=== PATIENT | female | born 1955 | race Caucasian/White ===

== ENCOUNTER 2019-06-25 11:58 | Emergency (ER) | payer OTHER, MEDICARE ==
[2019-06-25] MEDS ORDERED: IPRATROPIUM 0.02% NEBU 2.5 ML IH ONE (12:36)
[2019-06-25] MEDS ORDERED: ALBUTEROL 2.5 MG/3 ML NEBU IH ONE (12:36)
[2019-06-25] MEDS ORDERED: EPINEPHrine/PF (1:1,000) 1 MG/1 ML INJ SUB-Q ONE (12:36)
[2019-06-25] MEDS ORDERED: SODIUM CHLORIDE 0.9% 500 ML 500 ML IV ONE (12:36)
[2019-06-25] MEDS ORDERED: MAGNESIUM SULFATE 2 GM/50 ML BAG IV ONE (12:36)
[2019-06-25] MEDS ORDERED: methylPREDNISolone Sod Succinate 125 MG/2 ML INJ IV ONE (12:36)
--- NOTE | 2019-06-25 12:37 | Emergency Department Report ---
ED General Adult HPI - General Chief complaint: Dyspnea/Respdistress Stated complaint: PAGE Time Seen by Provider: 06/25/19 12:08 Source: patient, family, RN notes reviewed Mode of arrival: Ambulatory Limitations: Language Barrier - History of Present Illness Initial comments: Patient prefers that her grandson translate for her, and specifically requests family translate. This is a 64-year-old female. This patient is not known to this provider previo usly. Her primary care doctor is Dr. Wyatt. Patiently currently on amoxicillin antibiotic, and as needed albuterol. She presents to the ER with family with complaint of painless cough. The cough has been present for 3 weeks. Apparently, she intimately gets cough, and shortness of breath. Does not have a formal diagnosis of COPD, emphysema or asthma that she is aware of. There is no endorsement of DVT, pulmonary embolus risk factors. In the emergency room, given albuterol, Atrovent, steroids, magnesium and subcutaneous epinephrine. These dramatically improved and resolved her symptoms. At this point in time, the patient endorses readiness for discharge. -: Gradual, week(s) Consistency: intermittent Improves with: medication, rest Worsens with: movement - Related Data Home Medications Medication Instructions Recorded Confirmed Last Taken ALBUTEROL Inhaler (OR & NICU) 2 puff IH QID PRN 06/25/19 06/25/19 06/25/19 [Proair] Amoxicillin/Potassium Clav 1 each PO BID 06/25/19 06/25/19 06/25/19 [Augmentin 875-125 Tablet] Aspirin [Adult Aspirin] 81 mg PO DAILY 06/25/19 06/25/19 06/25/19 Atenolol [Tenormin] 25 mg PO DAILY 06/25/19 06/25/19 06/25/19 Cetirizine HCl [Zyrtec 10mg tab] 10 mg PO QDAY 06/25/19 06/25/19 06/24/19 Promethazine/Dextromethorphan 5 ml PO Q4H PRN 06/25/19 06/25/19 06/25/19 [Promethazine-Dm Solution] Previous Rx's Medication Instructions Recorded Last Taken Type Albuterol Sulfate [Proair 90 mcg IH Q4HR PRN #2 aer.[email or web address] 06/25/19 Unknown Rx Respiclick] Benzonatate [Tessalon Perles] 100 mg PO Q8HR PRN #30 capsule 06/25/19 Unknown Rx Fluticasone [Flonase] 1 spray NS QDAY #1 bottle 06/25/19 Unknown Rx Ipratropium (Nf) [Atrovent] 2 puff IH Q6HR PRN #1 inha 06/25/19 Unknown Rx predniSONE [Deltasone] 40 mg PO QDAY #8 tab 06/25/19 Unknown Rx ED Review of Systems ROS: Stated complaint: PAGE Other details as noted in HPI Constitutional: malaise, weakness ENT: congestion Respiratory: shortness of breath, SOB with exertion, SOB at rest, wheezing Cardiovascular: denies: syncope Gastrointestinal: denies: vomiting Genitourinary: denies: dysuria Musculoskeletal: denies: back pain, myalgia Skin: denies: lesions Neurological: weakness ED Past Medical Hx - Medications Home Medications: Home Medications Medication Instructions Recorded Confirmed Last Taken Type ALBUTEROL Inhaler (OR & NICU) 2 puff IH QID PRN 06/25/19 06/25/19 06/25/19 History [Proair] Albuterol Sulfate [Proair 90 mcg IH Q4HR PRN #2 aer.pow.ba 06/25/19 Unknown Rx Respiclick] Amoxicillin/Potassium Clav 1 each PO BID 06/25/19 06/25/19 06/25/19 History [Augmentin 875-125 Tablet] Aspirin [Adult Aspirin] 81 mg PO DAILY 06/25/19 06/25/19 06/25/19 History Atenolol [Tenormin] 25 mg PO DAILY 06/25/19 06/25/19 06/25/19 History Benzonatate [Tessalon Perles] 100 mg PO Q8HR PRN #30 capsule 06/25/19 Unknown Rx Cetirizine HCl [Zyrtec 10mg tab] 10 mg PO QDAY 06/25/19 06/25/19 06/24/19 History Fluticasone [Flonase] 1 spray NS QDAY #1 bottle 06/25/19 Unknown Rx Ipratropium (Nf) [Atrovent] 2 puff IH Q6HR PRN #1 inha 06/25/19 Unknown Rx Promethazine/Dextromethorphan 5 ml PO Q4H PRN 06/25/19 06/25/19 06/25/19 History [Promethazine-Dm Solution] predniSONE [Deltasone] 40 mg PO QDAY #8 tab 06/25/19 Unknown Rx ED Physical Exam - General Limitations: Language Barrier General appearance: alert, anxious - Head Head exam: Present: atraumatic, normocephalic - Eye Eye exam: Present: normal appearance, EOMI. Absent: nystagmus - ENT ENT exam: Present: normal exam, normal orophraynx, mucous membranes moist, normal external ear exam - Neck Neck exam: Present: normal inspection, full ROM. Absent: tenderness, meningismus - Respiratory Respiratory exam: Present: respiratory distress, wheezes, rhonchi - Cardiovascular Cardiovascular Exam: Present: regular rate, normal rhythm, normal heart sounds. Absent: bradycardia, tachycardia, irregular rhythm, systolic murmur, diastolic murmur, rubs, gallop - GI/Abdominal GI/Abdominal exam: Present: soft. Absent: distended, tenderness, guarding, rebound, rigid, pulsatile mass - Extremities Exam Extremities exam: Present: normal inspection, full ROM, other (there is no palpable cord. There is a negative Homans sign.2+ pulses noted in the bilateral upper, lower extremities. There is no long bone tenderness. Musculoskeletal compartments are soft. The pelvis is stable.). Absent: pedal edema, joint swelling, calf tenderness - Back Exam Back exam: Present: normal inspection, full ROM. Absent: CVA tenderness (L), paraspinal tenderness, vertebral tenderness - Neurological Exam Neurological exam: Present: alert, other (there is no facial droop. The tongue is midline. Extraocular movements are intact bilaterally. There is 5/5 strength bilateral upper, lower extremities. Sensation is intact to light touch in 4 extremities.) - Psychiatric Psychiatric exam: Present: anxious - Skin Skin exam: Present: warm, dry, intact, normal color. Absent: rash ED Course Vital Signs 06/25/19 06/25/19 06/25/19 12:15 12:30 12:47 Temperature 98.4 F Pulse Rate 82 78 78 Pulse Rate [ Anterior Throughout] Pulse Rate [ Posterior Throughout] Respiratory 29 H 19 28 H Rate Respiratory Rate [Anterior Throughout] Respiratory Rate [Posterior Throughout] Blood Pressure Blood Pressure 125/65 [Right] O2 Sat by Pulse 98 99 99 Oximetry 06/25/19 06/25/19 06/25/19 13:00 13:30 14:00 Temperature Pulse Rate 74 77 81 Pulse Rate [ Anterior Throughout] Pulse Rate [ Posterior Throughout] Respiratory 25 H 18 22 Rate Respiratory Rate [Anterior Throughout] Respiratory Rate [Posterior Throughout] Blood Pressure 133/77 122/65 144/65 Blood Pressure [Right] O2 Sat by Pulse 96 97 98 Oximetry 06/25/19 14:37 Temperature Pulse Rate Pulse Rate [ 90 Anterior Throughout] Pulse Rate [ 83 Posterior Throughout] Respiratory Rate Respiratory 20 Rate [Anterior Throughout] Respiratory 22 Rate [Posterior Throughout] Blood Pressure Blood Pressure [Right] O2 Sat by Pulse Oximetry ED Medical Decision Making - Lab Data Result diagrams: 06/25/19 12:44 06/25/19 12:44 Vital Signs 06/25/19 06/25/19 06/25/19 12:15 12:30 12:47 Temperature 98.4 F Pulse Rate 82 78 78 Pulse Rate [ Anterior Throughout] Pulse Rate [ Posterior Throughout] Respiratory 29 H 19 28 H Rate Respiratory Rate [Anterior Throughout] Respiratory Rate [Posterior Throughout] Blood Pressure Blood Pressure 125/65 [Right] O2 Sat by Pulse 98 99 99 Oximetry 06/25/19 06/25/19 06/25/19 13:00 13:30 14:00 Temperature Pulse Rate 74 77 81 Pulse Rate [ Anterior Throughout] Pulse Rate [ Posterior Throughout] Respiratory 25 H 18 22 Rate Respiratory Rate [Anterior Throughout] Respiratory Rate [Posterior Throughout] Blood Pressure 133/77 122/65 144/65 Blood Pressure [Right] O2 Sat by Pulse 96 97 98 Oximetry 06/25/19 14:37 Temperature Pulse Rate Pulse Rate [ 90 Anterior Throughout] Pulse Rate [ 83 Posterior Throughout] Respiratory Rate Respiratory 20 Rate [Anterior Throughout] Respiratory 22 Rate [Posterior Throughout] Blood Pressure Blood Pressure [Right] O2 Sat by Pulse Oximetry Lab Results 06/25/19 06/25/19 06/25/19 Range/Units 12:44 12:44 12:44 WBC 10.0 (4.5-11.0) K/mm3 RBC 5.39 H (3.65-5.03) M/mm3 Hgb 16.0 H (10.1-14.3) gm/dl Hct 47.8 H (30.3-42.9) % MCV 89 (79-97) fl MCH 30 (28-32) pg MCHC 34 (30-34) % RDW 13.6 (13.2-15.2) % Plt Count 300 (140-440) K/mm3 PT 12.9 (12.2-14.9) Sec. INR 1.00 (0.87-1.13) APTT 50.7 H (24.2-36.6) Sec. Sodium 141 (137-145) mmol/L Potassium 5.0 (3.6-5.0) mmol/L Chloride 98.5 (98-107) mmol/L Carbon Dioxide 27 (22-30) mmol/L Anion Gap 21 mmol/L BUN 16 (7-17) mg/dL Creatinine 0.6 L (0.7-1.2) mg/dL Estimated GFR > 60 ml/min BUN/Creatinine Ratio 27 % Glucose 240 H (65-100) mg/dL Calcium 9.7 (8.4-10.2) mg/dL Magnesium 2.20 (1.7-2.3) mg/dL Total Bilirubin 0.80 (0.1-1.2) mg/dL AST 17 (5-40) units/L ALT 17 (7-56) units/L Alkaline Phosphatase 106 (35-129) units/L Total Creatine Kinase 35 (30-135) units/L Total Protein 7.8 (6.3-8.2) g/dL Albumin 3.9 (3.9-5) g/dL Albumin/Globulin Ratio 1.0 % - EKG Data -: EKG Interpreted by Ca EKG shows normal: sinus rhythm Rate: normal - EKG Data When compared to previous EKG there are: previous EKG unavailable 06/25/19 15:40 There is no prior EKG available for comparison. This is a sinus rhythm, 70 bpm, normal axis, QTC is within normal limits, there is borderline left ventricular hypertrophy, there is motion artifact, this EKG is abnormal, the EKG is not consistent with ST elevation myocardial infarction. - Radiology Data Radiology results: pending, report reviewed, image reviewed - Medical Decision Making Differential diagnosis, including but not limited to: Bronchitis, asthma, reactive airway disease, emphysema Assessment and plan: 64-year-old female with painless cough, wheezing, shortness of breath. As per family, no DVT or pulmonary ambles amiss factors. Patient treated aggressively in the department. Symptoms and physical exam findings improved and resolved. Patient has endorsed readiness for discharge. Extensive discussion had with family on need for compliance with prescribed medicines, the need for outpatient follow-up for formal pulmonary function testing. This is extensively discussed with her grandson, who verbalizes understanding. This patient has been observed in the ER 4 hours, with clinical improvement, has not decompensated acutely. She is suitable for discharge at this point in time. Family indicates no cigarette smoking. Critical care attestation.: If time is entered above; I have spent that time in minutes in the direct care of this critically ill patient, excluding procedure time. ED Disposition Clinical Impression: Reactive airway disease Disposition: DC-01 TO HOME OR SELFCARE Is pt being admited?: No Does the pt Need Aspirin: No Condition: Stable Additional Instructions: Take the prescribed breathing medications as directed. Take the prednisone steroids as directed. Avoid exposure to tobacco, and electronic cigarettes and smoke products. Follow up with a pulmonary doctor or primary care doctor within the next 7-10 days for scheduling of outpatient pulmonary function testing. Return to the emergency room right away with new, worsened, different symptoms, or symptoms not present on the initial emergency room evaluation. Referrals: JACKSON ORTEGA MD [Primary Care Provider] - 3-5 Days ANDREAS STEELE MD [Staff Physician] - 3-5 Days ROSEMARIE SABILLON MD [Staff Physician] - 3-5 Days
[2019-06-25 12:59] LABS: Hematocrit 47.8 % (30.3-42.9); Mean Corpuscular HGB Conc 34 % (30-34); Mean Corpuscular Volume 89 fl (79-97); Platelet Count 300 K/mm3 (140-440); Red Blood Count 5.39 M/mm3 (3.65-5.03); Red Cell Distribution Width 13.6 % (13.2-15.2)
[2019-06-25 13:14] LABS: Partial Thromboplastin Time 50.7 Sec. (24.2-36.6)
--- NOTE | 2019-06-25 13:15 | XRay Report ---
CHEST 1 VIEW INDICATION: Dyspnea. COMPARISON: None. FINDINGS: Support devices: None. Heart: Within normal limits. Pulmonary vasculature: Normal. Lungs/Pleura: Normally expanded and clear lungs. No pleural effusion. No pneumothorax. Additional findings: None. IMPRESSION: Acute cardiopulmonary process. Signer Name: Yamil Garcia MD Signed: 06/25/2019 1:11 PM Workstation Name: [id number]
[2019-06-25 13:19] LABS: Alanine Aminotransferase 17 units/L (7-56); Albumin 3.9 g/dL (3.9-5); BUN/Creatinine Ratio 27; Blood Urea Nitrogen 16 mg/dL (7-17); Calcium 9.7 mg/dL (8.4-10.2); Hemolysis Index 7
[2019-06-25 16:23] VITALS: BP 139/64
== END 2019-06-25 16:22 | disposition home or self-care (01) ==
LOC: ED 11:58
DX: J45.909 Unspecified asthma, uncomplicated (principal); Z79.899 Other long term (current) drug therapy
CPT/HCPCS: 36415; 71045; 80053; 82550; 83735; 85027; 85610; 85730; 93005; 93010; 94640; 96365; 96372; 96375; 99285; J0171; J2930; J3475; J7040; 94644